=== PATIENT | female | born 1990 | race American Indian/Alaskan Native ===

== ENCOUNTER 2019-01-31 13:33 | Emergency (ER) | payer OTHER ==
--- NOTE | 2019-01-31 13:40 | Event Note ---
ED Screening Note ED Screening Note: WENT TO EYE MD FOR ROUTINE EXAM FOUND OPTIC NERVE EDEMA SENT TO ER CO DOMINIQUE H/A NO N/V SEE PAPERS SENT WITH PT- ON HER PERSON This initial assessment/diagnostic orders/clinical plan/treatment(s) is/are subject to change based on patients health status, clinical progression and re- assessment by fellow clinical providers in the ED. Further treatment and workup at subsequent clinical providers discretion. Patient/guardian urged not to elope from the ED as their condition may be serious if not clinically assessed and managed. Initial orders include: LABS UA CT HEAD
[2019-01-31 14:16] LABS: Hematocrit 43.7 % (30.3-42.9); Hemoglobin 14.6 gm/dl (10.1-14.3); Mean Corpuscular HGB Conc 33 % (30-34); Mean Corpuscular Volume 84 fl (79-97); Platelet Count 198 K/mm3 (140-440); Red Blood Count 5.22 M/mm3 (3.65-5.03); Red Cell Distribution Width 13.8 % (13.2-15.2)
[2019-01-31 14:59] LABS: BUN/Creatinine Ratio 15; Blood Urea Nitrogen 9 mg/dL (7-17); Calcium 9.5 mg/dL (8.4-10.2); Hemolysis Index 4
--- NOTE | 2019-01-31 16:47 | Emergency Department Report ---
ED Eye Problem HPI - General Chief complaint: Eye Problems Stated complaint: OPTIC NERVE EDEMA Time Seen by Provider: 01/31/19 13:39 Source: patient Mode of arrival: Ambulatory Limitations: No Limitations - History of Present Illness Initial comments: 28-year-old female with a past medical history of hypertension presents to the hospital after being referred by load dropper for bilateral optic nerve edema. Patient saw the load dropper for contact lenses. Patient denies any acute visual changes, blurred vision, headache, nausea, vomiting, focal weakness, or focal numbness. She was sent to the ER with a note to rule out brain tumor, aneurysm, uncontrolled blood pressure, etc. She was also given a number for the [facility]. - Related Data Allergies Allergy/AdvReac Type Severity Reaction Status Date / Time No Known Allergies Allergy Verified 01/31/19 13:41 ED Review of Systems ROS: Stated complaint: OPTIC NERVE EDEMA Other details as noted in HPI Comment: All other systems reviewed and negative ED Past Medical Hx - Past Medical History Hx Hypertension: Yes - Surgical History Past Surgical History?: No - Social History Smoking Status: Never Smoker Substance Use Type: None ED Physical Exam - General Limitations: No Limitations - Other Other exam information: General: No acute distress Head: Atraumatic Eyes: Normal appearance, Pupils equal and reactive to light, extraocular movements intact. Visual acuity right 20/20, left eye 20/15, bilateral 20/15 ENT: Normal oropharynx Neck: Normal appearance, no posterior or midline tenderness, no meningismus Chest: Clear to auscultation bilaterally, no wheezes, rales, or crackles CV: Regular rate and rhythm Abdomen: soft, normal bowel sounds, nontender, nondistended, no rebound or guarding Back: Nontender Extremity: Normal inspection, full range of motion, nontender Neuro: Alert and oriented 3, speech clear, no gross motor or sensory deficit Skin: No rash, redness, warmth ED Course Vital Signs 01/31/19 01/31/19 01/31/19 13:47 14:56 15:00 Temperature 98.7 F Pulse Rate 72 Respiratory 16 Rate Blood Pressure 156/99 144/94 O2 Sat by Pulse 100 99 100 Oximetry 01/31/19 01/31/19 01/31/19 15:15 15:25 15:26 Temperature 98.6 F Pulse Rate Respiratory 20 Rate Blood Pressure 145/94 O2 Sat by Pulse 100 100 Oximetry 01/31/19 01/31/19 01/31/19 16:05 16:15 16:30 Temperature Pulse Rate Respiratory Rate Blood Pressure 145/94 140/90 149/101 O2 Sat by Pulse 98 100 100 Oximetry 01/31/19 01/31/19 01/31/19 16:45 17:00 17:15 Temperature Pulse Rate Respiratory Rate Blood Pressure 143/101 135/99 124/80 O2 Sat by Pulse 100 96 99 Oximetry 01/31/19 01/31/19 01/31/19 17:30 17:45 18:00 Temperature Pulse Rate Respiratory Rate Blood Pressure 122/74 117/71 135/87 O2 Sat by Pulse 99 99 98 Oximetry 01/31/19 01/31/19 18:15 18:30 Temperature 98.6 F Pulse Rate Respiratory Rate Blood Pressure 133/76 O2 Sat by Pulse 99 Oximetry - Consultations Consultation #2: 01/31/19 17:[address] Narvaez with [facility] think patient needs to have ophthalmology evaluation and requests transfer to [facility] 01/31/19 18:40 [facility] services notified at 6 PM and patient has been accepted for transfer to the ER at [facility] ED Medical Decision Making - Lab Data Result diagrams: 01/31/19 13:50 01/31/19 13:49 Lab Results 01/31/19 01/31/19 01/31/19 Range/Units 13:49 13:50 15:01 WBC 5.6 (4.5-11.0) K/mm3 RBC 5.22 H (3.65-5.03) M/mm3 Hgb 14.6 H (10.1-14.3) gm/dl Hct 43.7 H (30.3-42.9) % MCV 84 (79-97) fl MCH 28 (28-32) pg MCHC 33 (30-34) % RDW 13.8 (13.2-15.2) % Plt Count 198 (140-440) K/mm3 Sodium 141 (137-145) mmol/L Potassium 4.3 (3.6-5.0) mmol/L Chloride 102.1 (98-107) mmol/L Carbon Dioxide 23 (22-30) mmol/L Anion Gap 20 mmol/L BUN 9 (7-17) mg/dL Creatinine 0.6 L (0.7-1.2) mg/dL Estimated GFR > 60 ml/min BUN/Creatinine Ratio 15 % Glucose 102 H (65-100) mg/dL Calcium 9.5 (8.4-10.2) mg/dL HCG, Quant < 2 (0-4) mIU/mL - Radiology Data Radiology results: report reviewed CT head/brain wo con INDICATION: headache; optic nerve edema. TECHNIQUE: Routine CT head without contrast. All CT scans at this location are performed using CT dose reduction for ALARA by means of automated exposure control. COMPARISON: None. FINDINGS: BRAIN / INTRACRANIAL CONTENTS: No acute hemorrhage, mass effect, midline shift, or hydrocephalus. No appreciable acute large territorial or lacunar infarct. No chronic infarct or focal atrophy. Normal brain volume and ventricular/sulcal size for age. The density of the dural sinuses appears normal. The sellar and pituitary volume appears grossly normal. ORBITS: No significant abnormality of visualized orbits. SINUSES / MASTOIDS: No significant abnormality of visualized sinuses and mastoid air cells. ADDITIONAL FINDINGS: None. IMPRESSION: 1. No acute intracranial abnormality. No mass effect or evidence of increased intracranial pressure by CT. Sellar and pituitary volume appears relatively normal. - Medical Decision Making Patient transferred to [facility] for further ophthalmology evaluation - Differential Diagnosis multiple sclerosis, tumor, incr csf, pseudo tumor Critical Care Time: No Critical care attestation.: If time is entered above; I have spent that time in minutes in the direct care of this critically ill patient, excluding procedure time. ED Disposition Clinical Impression: Papilledema of both eyes Disposition: [id number]/TX-[id number] PSY HOSP/PSY UNIT Is pt being admited?: No Condition: Stable Time of Disposition: 18:50
--- NOTE | 2019-01-31 17:08 | Cat Scan Report ---
CT head/brain wo con INDICATION: headache; optic nerve edema. TECHNIQUE: Routine CT head without contrast. All CT scans at this location are performed using CT dos e reduction for ALARA by means of automated exposure control. COMPARISON: None. FINDINGS: BRAIN / INTRACRANIAL CONTENTS: No acute hemorrhage, mass effect, midline shift, or hydrocephalus. No appreciable acute large territorial or lacunar infarct. No chronic infarct or focal atrophy. Normal b rain volume and ventricular/sulcal size for age. The density of the dural sinuses appears normal. The sellar and pituitary volume appears grossly normal. ORBITS: No significant abnormality of visualized orbits. SINUSES / MASTOIDS: No significant abnormality of visualized sinuses and mastoid air cells. ADDITIONAL FINDINGS: None. IMPRESSION: 1. No acute intracranial abnormality. No mass effect or evidence of increased intracranial pressure b y CT. Sellar and pituitary volume appears relatively normal. Signer Name: Smione Vanegas MD Signed: 01/31/2019 5:04 PM Workstation Name: [id number]
[2019-01-31 18:30] VITALS: BP 133/76
== END 2019-01-31 19:10 ==
LOC: ED 13:33
DX: H47.10 Unspecified papilledema (principal); I10 Essential (primary) hypertension
CPT/HCPCS: 36415; 70450; 80048; 84702; 85027